=== PATIENT | male | born 1960 | race Caucasian/White ===

== ENCOUNTER → 2019-08-18 | Outpatient (REF) | payer MEDICARE, MEDICAID ==
[2019-08-18 17:32] LABS: PLATELET COUNT, AUTOMATED 200 10^3/uL (150-450)
[2019-08-18 17:58] LABS: INR 1.08; PROTHROMBIN TIME 13.7 SECONDS (11.8-14.0)
[2019-08-18 17:59] LABS: PARTIAL THROMBOPLASTIN TIME 31.1 SECONDS (25.0-38.4)
== END ==
LOC: M LABDRAW1 16:44
PROVIDERS: ATTEND Physical Medicine & Rehabilitation
DX: M47.27 Other spondylosis with radiculopathy, lumbosacral region (principal)

== ENCOUNTER → 2021-11-01 | Outpatient (CLI) | payer MEDICARE, MEDICAID ==
[~2021-11-01] MED LIST: AMOX500T2 PO; CYCL-707 PO; HYDR12.55 PO; LANTINJ4 SC; LISI40TA4 PO; METF10004 PO; METO1TAB7 PO; OXYC10TA3 PO; PANT40TA29 PO; PLAV1TAB2 PO; PREG50CA PO; PROAAER10 INH; SERT50TA29 PO; SIMV40TA20 PO; TRAD5TAB PO
== END ==
LOC: M LABSMTC 10:20
PROVIDERS: ATTEND Anesthesiology
DX: Z01.812 Encounter for preprocedural laboratory examination (principal); Z20.822 Contact with and (suspected) exposure to COVID-19

== ENCOUNTER → 2022-03-07 | Outpatient (CLI) | payer MEDICARE, MEDICAID | LOC: M LABSMTC 09:05 | PROVIDERS: ATTEND Anesthesiology | DX: Z01.818 Encounter for other preprocedural examination (principal); Z11.52 Encounter for screening for COVID-19 ==

== ENCOUNTER 2022-03-12 09:36 | Day surgery (SDC) | payer MEDICARE, MEDICAID ==
[~2022-03-12] VITALS: Ht 170.2 cm; Wt 84.8 kg
[~2022-03-12 09:36] MED LIST changes: +BACITRACIN OINTMENT 30GM TUBE As Ordered ONE; +CLOP75TA99 PO; +LIDOCAINE W/EPINEPHRINE 1% 20ML VIAL As Ordered ONE; -PLAV1TAB2 PO
[2022-03-12] MEDS ORDERED: LR 1,000 ML IV SCH ×2 (09:55→15:45)
[2022-03-12] MEDS ORDERED: ONDANSETRON 4MG 2ML VIAL As Ordered ONE (11:53)
[2022-03-12] MEDS ORDERED: propofoL 200 MG/20 ML VIAL As Ordered ONE (11:53)
[2022-03-12] MEDS ORDERED: MIDAZOLAM INJ 2MG/2ML VIAL (J2250 PER 1MG) As Ordered ONE (11:53)
[2022-03-12] MEDS ORDERED: dexameTHASONE 4 MG/ML 1ML VIAL (J1100 PER 1MG) As Ordered ONE (11:53)
[2022-03-12] MEDS ORDERED: LIDOCAINE 2% 100MG/5ML SDV (FOR ANES.) As Ordered ONE (11:53)
[2022-03-12] MEDS ORDERED: HYDROmorphone HCL 2MG/ML 1ML VIAL As Ordered ONE (11:53)
[2022-03-12] MEDS ORDERED: ROCURONIUM BROMIDE 50 MG/5 ML VIAL As Ordered ONE (11:53)
[2022-03-12] MEDS ORDERED: fentaNYL 100 MCG/2 ML INJECTION As Ordered ONE (11:53)
[2022-03-12] MEDS ORDERED: PHENYLephrine 500MCG 5ML (100MCG/ML) SYRINGE As Ordered ONE ×2 (12:03→14:01)
[2022-03-12] MEDS ORDERED: ePHEDrine SULFATE 25 MG/5 ML(5MG/ML) SYRINGE As Ordered ONE ×2 (12:13→13:24)
[2022-03-12] MEDS ORDERED: SUGAMMADEX SODIUM 500 MG/5 ML VIAL (BRIDION) As Ordered ONE (12:35)
[2022-03-12] MEDS ORDERED: ACETAMINOPHEN 1000MG 100ML IV BTL (OFIRMEV) (J0131 PER 10MG) As Ordered ONE (12:36)
[2022-03-12] MEDS ORDERED: CLINDAMYCIN 600MG/50ML PREMIX BAG As Ordered ONE (14:33)
[2022-03-12] MEDS ORDERED: MORPHINE 2 MG/ML 1ML VIAL IV PRN (15:45)
[2022-03-12] MEDS ORDERED: INSULIN LISPRO (NovoLOG) PER UNIT SC PRN (15:45)
[2022-03-12] MEDS ORDERED: ONDANSETRON 4MG 2ML VIAL IV PRN ×2 (15:45→16:05)
[2022-03-12] MEDS: oxyCODONE 5MG TAB PO PRN ×2 (16:20→16:50)
[2022-03-12] MEDS: fentaNYL 100 MCG/2 ML INJECTION IV PRN ×2 (16:35→16:51)
[2022-03-12] MEDS ORDERED: CYCLOBENZAPRINE 10MG TABLET PO PRN (17:15)
[2022-03-12] MEDS ORDERED: ALBUTEROL 90 MCG/ACT 8GM HFA INHALER INH PRN (17:15)
[2022-03-12 18:00] VITALS: BP 136/75
[2022-03-12] MEDS: LR 1,000 ML IV SCH (18:13)
[2022-03-12 18:30] VITALS: BP 142/76
[2022-03-12] MEDS: PREGABALIN 50 MG CAP (LYRICA) PO SCH (21:36)
[2022-03-12] MEDS: CLINDAMYCIN 600 MG in IV 1 EA IV SCH (21:36)
[2022-03-12] MEDS: ANEXSIA, NORCO 7.5MG/325MG TABLET(HYDROCODONE/APAP) PO PRN (21:37)
[2022-03-12 21:38] VITALS: BP 143/78
[2022-03-12 22:30] VITALS: BP 158/80
[2022-03-12] MEDS: BACITRACIN OINTMENT 30GM TUBE TOP SCH (23:00)
[2022-03-12 23:30] VITALS: BP 144/78
[2022-03-13 00:30] VITALS: BP 122/59
[2022-03-13 02:01] VITALS: O2SAT 96
[2022-03-13] MEDS: ANEXSIA, NORCO 7.5MG/325MG TABLET(HYDROCODONE/APAP) PO PRN ×2 (02:53→08:37)
[2022-03-13] MEDS: CLINDAMYCIN 600 MG in IV 1 EA IV SCH (03:00)
[2022-03-13] MEDS: LR 1,000 ML IV SCH (03:00)
[2022-03-13 04:30] VITALS: BP 147/79
[2022-03-13] MEDS ORDERED: metFORMIN (GLUCOPHAGE) 1000MG TABLET PO SCH (08:00)
[2022-03-13 08:29] VITALS: BP 153/83
[2022-03-13] MEDS: PREGABALIN 50 MG CAP (LYRICA) PO SCH (08:36)
[2022-03-13] MEDS: BACITRACIN OINTMENT 30GM TUBE TOP SCH (08:37)
[2022-03-13] MEDS ORDERED: hydroCHLOROthiazide 12.5 MG CAPSULE PO SCH (09:00)
[2022-03-13] MEDS ORDERED: METOPROLOL SUCC (TopROL XL) 50MG **XL** TAB PO SCH (09:00)
[2022-03-13] MEDS ORDERED: PANTOPRAZOLE 40MG TAB (PROTONIX) PO SCH (09:00)
[2022-03-13] MEDS ORDERED: lisinopriL 40MG TAB PO SCH (09:00)
[2022-03-13] MEDS ORDERED: CLINDAMYCIN 600 MG in IV 1 EA IV SCH (11:00)
== END 2022-03-13 10:03 | disposition home or self-care (01) ==
LOC: M SDC 09:36 → M MSPAV 17:49 → M SDC 03-13 10:03
PROVIDERS: ATTEND Otolaryngology
DX: D11.0 Benign neoplasm of parotid gland (principal); I10 Essential (primary) hypertension; E11.9 Type 2 diabetes mellitus without complications; E78.5 Hyperlipidemia, unspecified; I25.2 Old myocardial infarction; I25.10 Atherosclerotic heart disease of native coronary artery without angina pectoris; Z98.61 Coronary angioplasty status; Z95.1 Presence of aortocoronary bypass graft; Z79.84 Long term (current) use of oral hypoglycemic drugs; Z79.4 Long term (current) use of insulin; K21.9 Gastro-esophageal reflux disease without esophagitis; F17.210 Nicotine dependence, cigarettes, uncomplicated; Z79.51 Long term (current) use of inhaled steroids; Z88.1 Allergy status to other antibiotic agents; Z79.02 Long term (current) use of antithrombotics/antiplatelets; Z79.899 Other long term (current) drug therapy
CPT/HCPCS: 42415; 88307; 96361; 96365; 96366; G0378; J0131; J1100; J1170; J1815; J2250; J2370; J2405; J3010